=== PATIENT | male | born 1985 | race Caucasian/White ===

== ENCOUNTER 2022-02-26 01:44 | Emergency (ER) | payer BC ==
[~2022-02-26] VITALS: Ht 175.3 cm; Wt 92.5 kg
--- NOTE | 2022-02-26 03:31 | NUR ---
TO ER BED 4. BIBS FOR C/O L SIDED ABD PAIN SINCE 2299 LAST NIGHT. DENIES ANY N/V. CHANGED INTO GOWN. CONNECTED TO MONITOR. AWAITING MD CHAU
--- NOTE | 2022-02-26 03:35 | NUR ---
URINE SAMPLE COLLECTED AND SENT TO LAB
[2022-02-26 04:00] LABS: BILIRUBIN,URINE NEGATIVE (NEGATIVE); COLOR,URINE YELLOW (YELLOW); LEUKOCYTE ESTERASE ,URINE NEGATIVE (NEGATIVE); NITRITE, URINE NEGATIVE (NEGATIVE); PROTEIN,URINE NEGATIVE (NEGATIVE); UGLUCOSE NEGATIVE (NEGATIVE); UROBILINOGEN,URINE 0.2 EU/dL (0.2)
[2022-02-26] MEDS ORDERED: FAMOTIDINE (20 MG) 20 MG TABLET PO ONE (04:30)
[2022-02-26] MEDS ORDERED: diphenhydrAMINE HCL 50 MG CAPSULE PO ONE (04:30)
[2022-02-26] MEDS ORDERED: predniSONE 10 MG TABLET PO ONE (04:30)
[2022-02-26] MEDS ORDERED: FAMOTIDINE (20 MG) 20 MG TABLET ONE (04:34)
[2022-02-26] MEDS ORDERED: predniSONE 20 MG TABLET ONE (04:34)
[2022-02-26] MEDS ORDERED: diphenhydrAMINE HCL 25 MG CAPSULE ONE (04:34)
--- NOTE | 2022-02-26 04:41 | NUR ---
Patient discharged to home in stable condition. Written and verbal after care instructions given. Patient verbalizes understanding of instruction.
[2022-02-26 04:42] VITALS: BP 151/82
== END 2022-02-26 04:43 | disposition home or self-care (01) ==
LOC: ER 01:51
DX: K59.00 Constipation, unspecified (principal); L50.9 Urticaria, unspecified; F17.200 Nicotine dependence, unspecified, uncomplicated; Z60.2 Problems related to living alone
CPT/HCPCS: 81003; 99284; J7512 ×2; Q0163